=== PATIENT | female | born 1960 | race Caucasian/White ===

== ENCOUNTER 2019-03-27 18:47 | Emergency (ER) | payer BC, OTHER ==
--- NOTE | 2019-03-27 19:40 | EDM.PDOC ---
ED HPI GENERAL MEDICAL PROBLEM - General Chief Complaint: Lower Extremity Injury/Pain Stated Complaint: R FOOT INJURY Time Seen by Provider: 03/27/19 19:05 Source of Information: Reports: Patient History Limitations: Reports: No Limitations - History of Present Illness INITIAL COMMENTS - FREE TEXT/NARRATIVE: 58 yo female who fell and twisted the rt ankle.C/o swelling,and pain on weight bearing right ankle Pain Score (Numeric/FACES): 6 - Related Data Allergies Allergy/AdvReac Type Severity Reaction Status Date / Time No Known Allergies Allergy Verified 03/27/19 18:57 Home Meds: Home Meds NK [No Known Home Meds] 03/27/19 [History] Past Medical History - Past Health History Medical/Surgical History: Denies Medical/Surgical History Social & Family History - Family History Family Medical History: Noncontributory - Tobacco Use Smoking Status *Q: Former Smoker Used Tobacco, but Quit: Yes Month/Year Tobacco Last Used: 1979 Review of Systems - Review of Systems Review Of Systems: ROS reveals no pertinent complaints other than HPI. ED EXAM, GENERAL - Physical Exam Exam: See Below Free Text/Narrative:: R ankle swellon,tender at the lateral malleolus. Course - Vital Signs Last Recorded V/S: Last Vital Signs Temp 98.5 F 03/27/19 18:47 Pulse 710 H 03/27/19 18:47 Resp 18 03/27/19 18:47 BP 150/85 H 03/27/19 18:47 Pulse Ox 100 03/27/19 18:47 - Orders/Labs/Meds Orders: Active Orders 24 hr Category Date Time Status Ankle Min 3V Rt [CR] Stat Exams 03/27/19 19:06 Taken Departure - Departure Time of Disposition: 19:39 Disposition: Home, Self-Care 01 Condition: Good Clinical Impression: Fracture of fibula - Discharge Information Instructions: Ankle Fracture, Walking Boot, Adult Referrals: Francisco J Hanna MD [Primary Care Provider] - Forms: ED Department Discharge Care Plan Goals: Follow up with your primary care provider in one month. - Problem List & Annotations (1) Fracture of fibula SNOMED Code(s): 38708223 Code(s): S82.409A - UNSP FRACTURE OF SHAFT OF UNSP FIBULA, INIT FOR CLOS FX Status: Acute - Problem List Review Problem List Initiated/Reviewed/Updated: Yes - My Orders Last 24 Hours: My Active Orders 03/27/19 19:06 Ankle Min 3V Rt [CR] Stat - Assessment/Plan Last 24 Hours: My Active Orders 03/27/19 19:06 Ankle Min 3V Rt [CR] Stat Plan: [facility] walker boot.Repeat Xray in 4 weeks
--- NOTE | 2019-03-29 15:22 | CR ---
INDICATION: Fall. RIGHT ANKLE: Three views of the right ankle were obtained 03/27/19 - no comparisons. A minimally oblique fracture through the lateral malleolus is noted with overlying soft tissue swelling. Very minimal lateral offset of less than 1 mm is suggested at the fracture site - adequate position and alignment is noted with the ankle mortise otherwise unremarkable. Overall bone density appeared to be normal. IMPRESSION: Lateral malleolar fracture with adequate position and alignment suggested. MTDD
== END 2019-03-27 19:40 | disposition home or self-care (01) ==
LOC: FB.ED 18:47
DX: S82.61XA Displaced fracture of lateral malleolus of right fibula, initial encounter for closed fracture (principal); X50.1XXA Overexertion from prolonged static or awkward postures, initial encounter; Z87.891 Personal history of nicotine dependence; W18.39XA Other fall on same level, initial encounter
CPT/HCPCS: 73610-RT; 99283-25